=== PATIENT | female | born 1995 | race Two or more races ===

== ENCOUNTER 2023-07-01 10:29 | Outpatient (CLI) | payer OTHER | END 2023-07-01 10:33 | disposition home or self-care (01) | LOC: PRENATAL 10:29 | PROVIDERS: ATTEND Obstetrics & Gynecology Maternal & Fetal Medicine | DX: O36.80X0 Pregnancy with inconclusive fetal viability, not applicable or unspecified (principal); Z36.82 Encounter for antenatal screening for nuchal translucency; Z3A.11 11 weeks gestation of pregnancy ==

== ENCOUNTER 2023-08-22 12:42 | Outpatient (CLI) | payer OTHER | END 2023-08-22 12:44 | disposition home or self-care (01) | LOC: PRENATAL 12:42 | PROVIDERS: ATTEND Obstetrics & Gynecology Maternal & Fetal Medicine | DX: O35.3XX0 Maternal care for (suspected) damage to fetus from viral disease in mother, not applicable or unspecified (principal); O44.00 Complete placenta previa NOS or without hemorrhage, unspecified trimester; O34.40 Maternal care for other abnormalities of cervix, unspecified trimester; Z3A.19 19 weeks gestation of pregnancy ==

== ENCOUNTER 2023-10-04 13:55 | Outpatient (CLI) | payer OTHER | END 2023-10-04 13:58 | disposition home or self-care (01) | LOC: PRENATAL 13:55 | PROVIDERS: ATTEND Obstetrics & Gynecology Maternal & Fetal Medicine | DX: O26.849 Uterine size-date discrepancy, unspecified trimester (principal); O34.40 Maternal care for other abnormalities of cervix, unspecified trimester; Z3A.25 25 weeks gestation of pregnancy ==

== ENCOUNTER → 2023-10-31 08:00 | Outpatient (CLI) | payer OTHER | END | disposition home or self-care (01) | LOC: PRENATAL 08:00 | PROVIDERS: ATTEND Obstetrics & Gynecology Maternal & Fetal Medicine | DX: O26.849 Uterine size-date discrepancy, unspecified trimester (principal); O36.5990 Maternal care for other known or suspected poor fetal growth, unspecified trimester, not applicable or unspecified; O26.879 Cervical shortening, unspecified trimester; Z3A.29 29 weeks gestation of pregnancy ==